=== PATIENT | female | born 1955 | race Caucasian/White ===

== ENCOUNTER 2020-04-28 05:09 | Inpatient (IN) ==
[2020-04-28] MEDS ORDERED: LORazepam 0.5 MG/1 ML VIAL IV STA (06:32)
[2020-04-28] MEDS ORDERED: SODIUM CHLORIDE 0.9% 500 ML IV SCH ×2 (06:45→07:30)
[2020-04-28 06:52] LABS: Basophils # (auto) 0.01 K/uL (0-0.2); Basophils % (auto) 0.1 %; Eosinophils # (auto) 0.05 K/uL (0-0.5); Eosinophils % (auto) 0.4 %; Hematocrit (blood only) 36.5 % (37-47); Hemoglobin 13.4 g/dL (12.0-16.0); Immature Granulocytes # (auto) 0.02 K/uL (0.00-0.02); Immature Granulocytes % (auto) 0.2 %; Lymphocytes # (auto) 2.32 K/uL (1.2-3.4); Lymphocytes % (auto) 20.6 %; Mean Corpuscular Hemoglobin 31.5 pg (25-34); Mean Corpuscular Hgb Conc 36.7 g/dL (32-36); Mean Corpuscular Volume 85.9 fL (80-100); Mean Platelet Volume 8.5 fL (7.4-10.4); Monocytes # (auto) 1.29 K/uL (0.11-0.59); Monocytes % (auto) 11.5 %; Neutrophils # (auto) 7.56 K/uL (1.4-6.5); Neutrophils % (auto) 67.2 %; Platelet Count 288 K/uL (130-400); RDW Coefficient of Variation 11.7 % (11.5-14.5); RDW Standard Deviation 36.4 fL (36.4-46.3); Red Blood Count 4.25 M/uL (4.2-5.4); White Blood Count 11.25 K/uL (4.8-10.8)
[2020-04-28 07:16] LABS: Albumin Globulin Ratio 1.1 (0.9-2); BUN Creatinine Ratio 11.2 (10-20); Bilirubin,Total 0.5 mg/dl (0.2-1); Calcium 8.8 mg/dl (8.5-10.1); Creatinine Clr Calc Pharmacy 81.3 ml/min; Est GFR (Non-African American) 95.8; Globulin 3.6 gm/dl (2.5-4.0); Potassium 3.8 mmol/L (3.5-5.1); Total Protein 7.6 gm/dl (6.4-8.2)
--- NOTE | 2020-04-28 08:07 | Emergency Department Note ---
Impression & Plan Hyponatremia, Medication side effects ED Provider Note NAME: PAVAN CARY AGE: 65 SEX: F ARRIVES VIA: Family Vehicle INFORMANT: Patient patient's daughter ED PROVIDER(S): Monica Wynn DO CHIEF COMPLAINT: Feels anxious PLAN: Disposition: Admitted to the [facility] Condition: Stable MEDICAL DECISION MAKING: This is a 65-year-old female patient who presents to the emergency department feeling diffuse myalgias, tremulous and diarrhea that started around midnight. The patient believes that she is having a medication side effect. The patient was diagnosed with shingles on her left upper thigh. She started taking Valtrex and prednisone yesterday. The patient has not been taking her metformin over the past week but once she started taking the prednisone, her blood sugars elevated so she started taking the metformin again. It is unclear what dose of this medication she has taken. The patient did not sleep overnight tonight and has become quite anxious. Her blood pressure was elevated upon presentation. It appears that she is having some side effects from the prednisone but the patient also has a significantly low sodium. After some discussion with the patient and her daughter, it seems that she had a previous episode of hyponatremia from unknown etiology approximately 2 years ago. She was [place] for this. I discussed the case with the [facility] group and they will evaluate for further management. Triage Nursing notes reviewed and agree them. Additional history obtained from patient's daughter who is at the bedside Prior medical records reviewed Vital Signs: reviewed and remarkable for hypertension Differential diagnosis: Hyperglycemia, electrolyte abnormality, anxiety, medication side effects, dehydration ER treatment provided: IV normal saline hydration, IV Ativan Diagnostics interpreted by me: Cardiac Monitoring: Normal sinus rhythm at a rate of 88 Laboratory studies: See below HPI: 65/F arrives for evaluation of myalgias, tremors and diarrhea. The patient believes that she is having a reaction to metformin or prednisone. Patient was diagnosed with shingles on her left upper thigh. She started taking Valtrex and prednisone yesterday. The patient has not been taking her metformin over the past week but once she started taking prednisone, her blood sugar elevated and she started taking an increased dose of metformin. The patient was unable to sleep tonight and had multiple episodes of diarrhea. She developed diffuse muscle ache and was shaking. The patient became quite anxious. ROS: See above HPI for pertinent positives & negatives. A total of 10 systems reviewed and were otherwise negative. PAST MEDICAL HISTORY:See Below PAST SURGICAL HISTORY:See Below FAMILY HISTORY:See Below SOCIAL HISTORY:See Below HOME MEDICATIONS:See Below ALLERGIES:See Below VITALS:See Below PHYSICAL EXAMINATION: General: The patient is extremely anxious on my initial exam. She is finding it difficult to sit still to communicate with me. HEENT: Head - normocephalic and atraumatic Pupils are equal, round, and reactive to light. Extraocular eye muscles are intact, and sclera are anicteric. Nose - moist nasal mucosa without discharge. Mouth - moist buccal mucosa. Oropharynx is nonerythematous and there is no tonsillar exudate or edema noted. Neck: Supple; no JVD, nuchal rigidity, cervical lymphadenopathy. Heart: Regular rate and rhythm. There is a normal S1 and S2 with no murmurs, clicks, or gallops appreciated. Lungs: Clear to auscultation bilaterally with no wheezes, rales, or rhonchi. Abdomen: Soft, completely nontender, nondistended, with good bowel sounds. There are no palpable pulsatile masses or hepatosplenomegaly. There is no guarding, rigidity, or rebound noted. Extremities: No evidence of cyanosis, clubbing, or edema. There are easily palpable peripheral pulses. Skin: The patient has vesicles noted on her left upper outer thigh; no obvious peripheral edema Times/Reassessments: 0620: The patient was evaluated in room a 12. A complete history and physical was performed. An order was placed for continuous cardiac monitoring. The patient was in a normal sinus rhythm at 82. An IV lock was initiated and labs are drawn as above. Patient was bolused with normal saline solution. I had a lengthy discussion with the patient and her daughter about how she was taking her metformin. Reviewed some laboratory values that have been resulted. The daughter made me aware of a previous episode of low sodium the patient had approximately 2 years ago when she was out of state which required hospitalization. Monica Wynn DO Past Med/Surg History Medical History (Updated 04/28/20 @ 23:08 by Monica Wynn DO) DM type 2 (diabetes mellitus, type 2) Dyslipidemia Hypertension Hyponatremia Hypothyroidism Surgical History History of partial hysterectomy History of sinus surgery History of tonsillectomy Family History Mother Heart disease Father Lung cancer Sister Diabetes Social History Smoking Status: Never smoker Second Hand Exposure: No; Do You Dip or Chew Tobacco: No; Tobacco Cessation Education Requested by Patient: No Hx Alcohol Use: No Hx Substance Use: No Preferred Language: Amharic Communication Ability: Effective 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 Beliefs That Will Affect Care: None Current Living Situation: Spouse Other Information That Helps Us Care for You: No Feels Safe at Home: Yes Safety Concerns: Feels Safe At This Time Allergies Allergies Allergy/AdvReac Type Severity Reaction Status Date / Time morphine AdvReac Severe Nausea Verified 04/28/20 05:47 codeine AdvReac Intermediate ABD PAIN Verified 04/28/20 05:47 Home Meds Home Medications Medication Instructions Recorded Confirmed ascorbic acid (vitamin C) [Vitamin 500 mg PO BID 05/13/18 04/28/20 C] aspirin [Adult Low Dose Aspirin] 81 mg PO DAILY 05/13/18 04/28/20 cholecalciferol (vitamin D3) 1,000 unit PO DAILY 05/13/18 04/28/20 [Vitamin D3] levothyroxine [Synthroid] 112 mcg PO DAILY 05/13/18 04/28/20 lisinopril [Zestril] 2.5 mg PO DAILY 05/13/18 04/28/20 calcium carbonate-vitamin D3 600 1 cap PO BID cap 09/21/19 04/28/20 mg calcium-200 unit capsule metformin 500 mg tablet 1,000 mg PO BID tab 09/21/19 04/28/20 nitroglycerin 0.4 mg sublingual 0.4 mg SL Q5M PRN 09/21/19 04/28/20 tablet omega-3 fatty acids 1,000 mg 1,000 mg PO DAILY 09/21/19 04/28/20 capsule simvastatin 10 mg tablet 10 mg PO DAILY 09/21/19 04/28/20 prednisone 40 mg PO DAILY 04/28/20 04/28/20 valacyclovir 1,000 mg PO TID 04/28/20 04/28/20 Results & Data (ED) Vital Signs Vital Signs - 24 hr 04/28/20 06:53 04/28/20 08:00 Pulse Rate [Left Radial] 105 H 98 H Pulse Rhythm [Left Radial] Regular Regular Pulse Strength [Left Radial] Normal Normal Respiratory Rate 18 18 Respiratory Effort / Characteristics Non-Labored Non-Labored Spontaneous Respiratory Depth Normal Normal Respiratory Pattern Regular Blood Pressure [Right Arm] 154/95 H 135/76 Blood Pressure Mean [Right Arm] 114 95 Blood Pressure Position [Right Arm] Lying Lying Pulse Oximetry 96 98 Oxygen Delivery Method Room Air Room Air Laboratory Data Result diagrams: 04/29/20 05:15 04/29/20 05:15 Lab Results 04/28/20 04/28/20 Range/Units 06:43 06:43 WBC 11.25 H (4.8-10.8) K/uL RBC 4.25 (4.2-5.4) M/uL Hgb 13.4 (12.0-16.0) g/dL Hct 36.5 L (37-47) % MCV 85.9 (80-100) fL MCH 31.5 (25-34) pg MCHC 36.7 H (32-36) g/dL RDW Std Deviation 36.4 (36.4-46.3) fL RDW Coeff of Yong 11.7 (11.5-14.5) % Plt Count 288 (130-400) K/uL MPV 8.5 (7.4-10.4) fL Immature Gran % (Auto) 0.2 % Neut % (Auto) 67.2 % Lymph % (Auto) 20.6 % [place] % (Auto) 11.5 % Eos % (Auto) 0.4 % Baso % (Auto) 0.1 % Neut # (Auto) 7.56 H (1.4-6.5) K/uL Lymph # (Auto) 2.32 (1.2-3.4) K/uL [place] # (Auto) 1.29 H (0.11-0.59) K/uL Eos # (Auto) 0.05 (0-0.5) K/uL Baso # (Auto) 0.01 (0-0.2) K/uL Immature Gran # (Auto) 0.02 (0.00-0.02) K/uL Sodium 117 L* (136-145) mmol/L Potassium 3.8 (3.5-5.1) mmol/L Chloride 85 L (98-107) mmol/L Carbon Dioxide 21 (21-32) mmol/L Anion Gap 13.0 H (3-11) BUN 7 (7-18) mg/dl Creatinine 0.61 (0.6-1.2) mg/dl Est Cr Clr Drug Dosing 81.3 ml/min Est GFR ( Amer) 111.0 Est GFR (Non-Af Amer) 95.8 BUN/Creatinine Ratio 11.2 (10-20) Glucose 206 H (70-99) mg/dl Calcium 8.8 (8.5-10.1) mg/dl Total Bilirubin 0.5 (0.2-1) mg/dl AST 18 (15-37) U/L ALT 20 (12-78) U/L Alkaline Phosphatase 70 (45-117) U/L Total Protein 7.6 (6.4-8.2) gm/dl Albumin 4.0 (3.4-5.0) gm/dl Globulin 3.6 (2.5-4.0) gm/dl Albumin/Globulin Ratio 1.1 (0.9-2) Administered Medications Acetaminophen (Acetaminophen 325 Mg Tab) 650 mg PO Q4H PRN PRN Reason: Pain or Fever Stop: 05/28/20 11:03 Last Admin: 04/29/20 02:37 Dose: 650 mg Documented by: [id number] Enoxaparin Sodium (Enoxaparin Inj 40 Mg/0.4 Ml Syr) 40 mg SQ Q24H [facility] Stop: 05/28/20 13:59 Last Admin: 04/28/20 13:07 Dose: 40 mg Documented by: [id number] Insulin Aspart (Insulin Aspart 100 Units/Ml 3 Ml Pen) 0 units SC ACHS [facility] Stop: 05/28/20 11:29 Last Admin: 04/28/20 21:53 Dose: Not Given Documented by: [id number] Cosigned by: [id number] Admin: 04/28/20 17:25 Dose: 3 units Documented by: [id number] Cosigned by: [id number] Admin: 04/28/20 11:56 Dose: 2 units Documented by: [id number] Cosigned by: [id number] Levothyroxine Sodium (Levothyroxine Sodium 112 Mcg Tablet) 112 mcg PO DAILYBB [facility] Stop: 05/29/20 06:29 Last Admin: 04/29/20 06:09 Dose: 112 mcg Documented by: [id number] Valacyclovir HCl (Valacyclovir Hcl 500 Mg Tablet) 1,000 mg PO TID KARTIK; Protocol Stop: 05/03/20 23:59 Last Admin: 04/28/20 21:23 Dose: 1,000 mg Documented by: [id number] Admin: 04/28/20 13:07 Dose: 1,000 mg Documented by: [id number] Discontinued Medications Acetaminophen (Acetaminophen 500 Mg Tab) 1,000 mg PO ONE STA Stop: 04/28/20 12:40 Last Admin: 04/28/20 13:10 Dose: 1,000 mg Documented by: [id number] Lorazepam (Ativan) 0.5 mg in 1 mls @ 1 mls/min IV NOW STA Stop: 04/28/20 06:33 Last Admin: 04/28/20 06:46 Dose: 1 mls/min Documented by: [id number] Sodium Chloride (Nss) 500 mls @ 999 mls/hr IV .Q31M KARTIK Stop: 04/28/20 07:15 Last Infusion: 04/28/20 08:14 Dose: 0 mls/hr Documented by: [id number] Admin: 04/28/20 06:49 Dose: 999 mls/hr Documented by: [id number] Sodium Chloride (Nss) 500 mls @ 125 mls/hr IV .Q4H KARTIK Stop: 05/28/20 07:29 Last Infusion: 04/28/20 12:20 Dose: 0 mls/hr Documented by: [id number] Admin: 04/28/20 08:15 Dose: 125 mls/hr Documented by: [id number] Sodium Chloride (Hypertonic Saline 3%) 100 mls @ 200 mls/hr IV .Q30M STA Stop: 04/28/20 12:14 Last Infusion: 04/28/20 12:51 Dose: 0 mls/hr Documented by: [id number] Cosigned by: [id number] Admin: 04/28/20 12:21 Dose: 200 mls/hr Documented by: [id number] Cosigned by: [id number] Sodium Chloride (Hypertonic Saline 3%) 250 mls @ 250 mls/hr IV .Q1H STA; Protocol Stop: 04/28/20 15:29 Last Infusion: 04/28/20 16:00 Dose: 0 mls/hr Documented by: [id number] Cosigned by: [id number] Admin: 04/28/20 15:00 Dose: 250 mls/hr Documented by: [id number] Cosigned by: [id number] Dextrose (D5w) 500 mls @ 125 mls/hr IV .Q4H STA Stop: 04/29/20 02:52 Last Infusion: 04/29/20 04:03 Dose: 0 mls/hr Documented by: [id number] Admin: 04/29/20 00:03 Dose: 125 mls/hr Documented by: [id number] Ondansetron HCl (Ondansetron Inj 2 Mg/Ml 2 Ml Vial) 4 mg IV ONE STA Stop: 04/28/20 12:40 Last Admin: 04/28/20 13:06 Dose: 4 mg Documented by: [id number] Potassium Chloride (Potassium Chloride 20 Meq Tabcr) 40 meq PO NOW STA Stop: 04/28/20 14:37 Last Admin: 04/28/20 15:09 Dose: 40 meq Documented by: [id number] Discharge Plan Visit Data Chief Complaint: Hypertension Stated Complaint: HYPERTENSION ED Provider: Monica Wynn Discharge Problem: Hyponatremia, Medication side effects Patient Disposition: Admitted As Inpatient Discharge Instructions Interventions: ED Discharge Assessment Last Done: 04/28/20 10:52
--- NOTE | 2020-04-28 09:46 | History & Physical Report ---
Date of Service April 28, 2020 Assessment & Plan (1) Hyponatremia: -Admit to telemetry -Patient presenting from home with reports of elevated BP, tremors, generalized weakness, and diarrhea -In the ED, Na+ 117; noted to be 128 on 04/26 -Admitted in 2018 for hyponatremia with sodium of 126, was attributed to increased water intake. Also reportedly admitted to a hospital in [place] last year for hyponatremia as well, records unavailable. -By history, fluid intake does not seem to be excessive -? SIADH vs. hypovolemic hyponatremia from diarrhea -Received NSS 500 cc in ED followed by NSS at 125/hour -Repeat Na+ 117 -Per nephrology, start 3% NSS (2) Diarrhea: -Check stool studies -Abdominal exam benign, will hold on imaging at this time (3) Shingles: -Continue valacyclovir -Hold prednisone as this may be contributing to elevated BP and some anxiety (4) Hypertension: -BP elevated on presentation however most recent BP 138/74 without intervention -Continue home dose of lisinopril (5) DM type 2 (diabetes mellitus, type 2): -Hgb A1c 7.5 03/2020 -Metformin recently placed on hold by endocrinology due to possible adverse effects -NovoLog per protocol hospitalized -Consider initiation of alternative p.o. agent at discharge (6) Hypothyroidism: -TSH 2.9 -Continue levothyroxine (7) DVT prophylaxis: -SQ Lovenox History of Present Illness Chief Complaint: High blood pressure, not feeling well Primary Care Provider: Susy Ivey DO 65-year-old female with PMH DM type II, hypothyroidism, HTN, dyslipidemia, and other problems listed below who presents the ED for evaluation of high blood pressure and generally not feeling well. Patient is a poor historian. Earlier this week, patient developed a rash on her left thigh. Patient was evaluated 2 days ago and was diagnosed with shingles. She was placed on valacyclovir and prednisone taper. Patient reports that yesterday after taking her second dose of prednisone, she started to not feel well. Describes having nausea, tremors, diarrhea, weakness, and headache. She was monitoring her blood pressure and reports systolic blood pressures were ranging from 100-180. She reports having about 12 episodes of diarrhea. Patient was seen by endocrinology on 03/20 and reported having "spells" involving these very similar symptoms. There seemed to be some correlation from when she started metformin. She was instructed by endocrinology to hold metformin for the time being. When she started to feel ill yesterday, she took 2 tablets of 500 mg metformin. Denies bright red bleeding per rectum or dark tarry stools. No vomiting or abdominal pain. Patient reports she typically takes in about 2 L of water per day. She will also drink a type of electrolyte replacement (Pedialyte) when she feels as though her electrolytes are abnormal. Reports having about two 24 ounce bottles yesterday. No chest pain or shortness of breath. Reports some mild lightheadedness and dizziness however no syncopal event. Denies any other recent illnesses, fevers, chills. No urinary symptoms. Review of records show the patient was admitted to [facility] in 2018 for hyponatremia that was felt to be secondary to excessive water intake. Patient also apparently had an admission to the hospital in [place] last year for hyponatremia however those records are unavailable at this time. Allergies Allergy/AdvReac Type Severity Reaction Status Date / Time morphine AdvReac Severe Nausea Verified 04/28/20 05:47 codeine AdvReac Intermediate ABD PAIN Verified 04/28/20 05:47 Home Medications Home Medications Medication Instructions Recorded Confirmed Type ascorbic acid (vitamin C) [Vitamin 500 mg PO BID 05/13/18 04/28/20 History C] aspirin [Adult Low Dose Aspirin] 81 mg PO DAILY 05/13/18 04/28/20 History cholecalciferol (vitamin D3) 1,000 unit PO DAILY 05/13/18 04/28/20 History [Vitamin D3] levothyroxine [Synthroid] 112 mcg PO DAILY 05/13/18 04/28/20 History lisinopril [Zestril] 2.5 mg PO DAILY 05/13/18 04/28/20 History calcium carbonate-vitamin D3 600 1 cap PO BID cap 09/21/19 04/28/20 History mg calcium-200 unit capsule metformin 500 mg tablet 1,000 mg PO BID tab 09/21/19 04/28/20 History nitroglycerin 0.4 mg sublingual 0.4 mg SL Q5M PRN 09/21/19 04/28/20 History tablet omega-3 fatty acids 1,000 mg 1,000 mg PO DAILY 09/21/19 04/28/20 History capsule simvastatin 10 mg tablet 10 mg PO DAILY 09/21/19 04/28/20 History prednisone 40 mg PO DAILY 04/28/20 04/28/20 History valacyclovir 1,000 mg PO TID 04/28/20 04/28/20 History Past Med/Surg History Medical History (Updated 04/28/20 @ 14:29 by Ernestine Griggs MD, PhD) DM type 2 (diabetes mellitus, type 2) Dyslipidemia Hypertension Hyponatremia Hypothyroidism Surgical History History of partial hysterectomy History of sinus surgery History of tonsillectomy Family History Mother Heart disease Father Lung cancer Sister Diabetes Social History Smoking Status: Never smoker Second Hand Exposure: No; Do You Dip or Chew Tobacco: No; Tobacco Cessation Education Requested by Patient: No Hx Alcohol Use: No Hx Substance Use: No Preferred Language: Turkmen Communication Ability: Effective 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 Beliefs That Will Affect Care: None Current Living Situation: Spouse Other Information That Helps Us Care for You: No Feels Safe at Home: Yes Safety Concerns: Feels Safe At This Time Review of Systems Review of Systems: ROS per HPI, all other systems reviewed and negative Physical Exam Constitutional: WD/WN, vitals as above Eyes: PERRL, conjunctivae normal, anicteric sclerae ENMT: external ear and nose normal, oropharynx normal Respiratory: normal respiratory effort, lungs clear to auscultation Cardiovascular: Rate/Rhythm: regular rhythm and + tachycardic (low 100s) Vessels: normal peripheral pulses Extremities: no edema Gastrointestinal (Abdomen): normal bowel sounds, soft, nontender, no hepatosplenomegaly Musculoskeletal: no cyanosis or clubbing, extremities motor strength 5/5 Skin: warm and dry; zoster appearing rash on anterior left thigh Neurologic: PERRL, EOMI, accommodation nl, no face palsy, no dysarthria Psychiatric: Orientation: alert and oriented x 3 restless at times Results & Data Results & Data ([facility]) Vital Signs (Past 12 Hours) Vital Signs Temp Pulse Pulse Resp BP BP Pulse Ox 04/28/20 09:07 37.0 C 100 H 24 146/98 H 96 04/28/20 08:00 98 H 18 135/76 98 04/28/20 06:53 105 H 18 154/95 H 96 04/28/20 06:34 96 04/28/20 05:22 37.1 C 116 H 20 184/97 H 98 Laboratory Results Short CBC 04/28/20 Range/Units 06:43 WBC 11.25 H (4.8-10.8) K/uL Hgb 13.4 (12.0-16.0) g/dL Hct 36.5 L (37-47) % Plt Count 288 (130-400) K/uL BMP 04/28/20 04/28/20 06:43 09:38 Sodium 117 L* 117 L* Potassium 3.8 3.5 Chloride 85 L 85 L Carbon Dioxide 21 22 BUN 7 5 L Creatinine 0.61 0.53 L Glucose 206 H 183 H Calcium 8.8 8.1 L Liver Function 04/28/20 Range/Units 06:43 Total Bilirubin 0.5 (0.2-1) mg/dl AST 18 (15-37) U/L ALT 20 (12-78) U/L Alkaline Phosphatase 70 (45-117) U/L Albumin 4.0 (3.4-5.0) gm/dl Code Status & VTE Plan VTE Prophylaxis Plan VTE Prophylaxis will be ordered: Yes Supervising Physician Co-Signing Physician Notes I have seen and examined the patient and have discussed the case with the provider above. I agree with the assessment and plan as stated with the following exceptions. 65 yo F with recent Na of 128 two days ago, presented today (04/28) with multiple systemic issues such as nonspecific abdominal pain, lower back pain, upper shoulder pain, nausea, diarrhea. She appears very uncomfortable. She started Valtrex to treat shingles on her leg as well as prednisone taper prior to onset of these symptoms. She was seen by an horseradish grinder one week ago who recommended she stop her metformin which she did but then restarted this yesterday (took 1000mg total) when she felt these symptoms start, thinking it was something to do with her blood sugar. She looks very systemically ill and agitated consistent with symptomatic hyponatremia. On exam, cardiac evaluation is normal with S1/2 heard and no murmurs, gallops or rubs. Lungs are CTAB, abdomen is soft and nontender. She has a shingles lesion on her upper left thigh with no significant swelling of this area, erythema or drainage. No LE edema. Appears euvolemic. Will hold diet for now until she starts to feel better. Nephrology is ordering 3% saline for 1 hr and will continue to follow her sodium and clinical progression closely throughout the day today. Hold any other IVF at this time. Stool sample if able with o ngoing diarrhea. Still awaiting urine labwork. Aneesh, DO
[2020-04-28 10:57] LABS: BUN Creatinine Ratio 9.7 (10-20); Calcium 8.1 mg/dl (8.5-10.1); Creatinine Clr Calc Pharmacy 92.1 ml/min; Est GFR (African American) 116.3; Est GFR (Non-African American) 100.3; Potassium 3.5 mmol/L (3.5-5.1); Thyroid Stimulating Hormone 2.96 uIu/ml (0.300-4.500)
[2020-04-28] MEDS ORDERED: GLUCAGON FOR INJ 1 MG VIAL SQ PRN (11:04)
[2020-04-28] MEDS ORDERED: GLUCOSE 40% GEL 15 GM TUBE PO PRN (11:04)
[2020-04-28] MEDS ORDERED: ACETAMINOPHEN 325 MG TAB PO PRN (11:04)
[2020-04-28] MEDS ORDERED: DEXTROSE 50% 50 ML SYRINGE IV PRN (11:04)
[2020-04-28] MEDS ORDERED: CARBOHYDRATES FOR HYPOGLYCEMIA PO PRN (11:04)
[2020-04-28] MEDS ORDERED: GLUCOSE 10 TABS/TUBE PO PRN (11:04)
[2020-04-28] MEDS ORDERED: ONDANSETRON INJ 2 MG/ML 2 ML VIAL IV PRN (11:04)
[2020-04-28] MEDS ORDERED: SODIUM CHLORIDE 3 % 100 ML IV STA (11:45)
[2020-04-28] MEDS: INSULIN ASPART 100 UNITS/ML 3 ML PEN SC SCH ×3 (11:56→21:53)
[2020-04-28] MEDS ORDERED: ACETAMINOPHEN 500 MG TAB PO STA (12:39)
[2020-04-28] MEDS ORDERED: ONDANSETRON INJ 2 MG/ML 2 ML VIAL IV STA (12:39)
[2020-04-28] MEDS: ENOXAPARIN INJ 40 MG/0.4 ML SYR SQ SCH (13:07)
[2020-04-28] MEDS: VALACYCLOVIR HCL 500 MG TABLET PO SCH ×2 (13:07→21:23)
[2020-04-28 14:25] LABS: Calcium 7.9 mg/dl (8.5-10.1); Creatinine Clr Calc Pharmacy 93.8 ml/min; Potassium 3.4 mmol/L (3.5-5.1)
--- NOTE | 2020-04-28 14:28 | Nephrology Consultation ---
Date of Consultation April 28, 2020 Assessment & Plan (1) Hyponatremia: severe and symptomatic hyponatremia, likeliest hypovolemic based on hx of diarrhea; however behaving clinically more like SIADH/low solute diet in that she's hardly responded to fluid resuscitation so far. in the ER she had 500mL NS and then 100 mL 3% saline >> sNa went from 117 to 118. >ordered another 250 mL 3% saline stat; recheck bmp ordered 1800 >reminder sent asking for urine specimens >recommend seizure precautions and bedrest (to commode with assist) until sNa consistently > 120 but defer to primary service to order (d/w Dr Melendrez) -maintain eukalemia: ordered 40 mEq po K x 1 -continue strict I/O -for now now fluid limit Care coordinated with Dr Melendrez; will follow with you Present on Admission?: Yes (2) Hypertension: (3) Shingles: History of Present Illness Reason for Consultation: hyponatremia Requesting Physician: Dr Melendrez Attending Physician: Karen Melendrez, DO History of Present Illness 65 y/o F whom I'm asked to see for same after she was admitted for sNa 117 in the setting of severe diarrhea, malaise, HTN urgency. PMH includes hypertension, diabetes on metformin, hypothyroid, myalgia, past admissions for hyponatremia, most recently in 2018 [facility] in the setting of diarrhea per 's report. Her is at bedside and gives much of the hx. Also admitted in [place] prior to 2018 for serum sodium 117 after excessive yard work, sweating and diarrhea. The patient saw her PCP on April 26 for evaluation of left outer thigh rash with left lower quadrant abdominal pain and left medial thigh proximal numbness: Diagnosed with shingles and given Valcyte and prednisone. Labs drawn that day show sNa 128. She had been on metformin to manage diabetes but had previously stopped it because she was concerned medication was increasing her blood pressure (she tells me; per report endocrinology had also recommended stopping metformin at least 10 days back). PCP did not specifically appliance counselor her to resume metformin (at least not per note), however the patient resumed it over the weekend. Also noted to have systolic blood pressure elevations at home up to 180 mmHg and beyond to where the machine could not functionally register her blood pressure during the weekend. Home cuff is validated. Should states her home blood pressure meds did not help HTN. Yesterday afternoon she started developing malaise and felt even worse after taking her second pill of Valtrex (she told me Valtrex; note that she told primary service sx worsend after second dose of prednisone). She had 1 to 2 L of Pedialyte at home but the diarrhea continued to worsen. She also had nonbilious nonbloody emesis x3 with nausea and fatigue with some tremors. She reports that at home overnight into this morning she was confused and had some chest discomfort. Denies having had either of these since arrival to the hospital. No falls but marked generalized weakness prior to hospital and continuing at time of our interview. Her presenting sodium was 117 at 0700 with a potassium of 3.8 and creatinine 0. 6; serum osmolality 247. In the ER she had 500 mL NS at about 0700; then another 500 mL at 0830; on recheck sNa unchanged at 117, K 3.5, creat 0.5. She had ongoing malaise and diffuse joint pain, N; no diarrhea on arrival to the floor > after discussion with IM attending, I ordered 100 mL 3% saline. Pt had transient relief of her sx. Allergies Allergy/AdvReac Type Severity Reaction Status Date / Time morphine AdvReac Severe Nausea Verified 04/28/20 05:47 codeine AdvReac Intermediate ABD PAIN Verified 04/28/20 05:47 Home Medications Home Medications Medication Instructions Recorded Confirmed Type ascorbic acid (vitamin C) [Vitamin 500 mg PO BID 05/13/18 04/28/20 History C] aspirin [Adult Low Dose Aspirin] 81 mg PO DAILY 05/13/18 04/28/20 History cholecalciferol (vitamin D3) 1,000 unit PO DAILY 05/13/18 04/28/20 History [Vitamin D3] levothyroxine [Synthroid] 112 mcg PO DAILY 05/13/18 04/28/20 History lisinopril [Zestril] 2.5 mg PO DAILY 05/13/18 04/28/20 History calcium carbonate-vitamin D3 600 1 cap PO BID cap 09/21/19 04/28/20 History mg calcium-200 unit capsule metformin 500 mg tablet 1,000 mg PO BID tab 09/21/19 04/28/20 History nitroglycerin 0.4 mg sublingual 0.4 mg SL Q5M PRN 09/21/19 04/28/20 History tablet omega-3 fatty acids 1,000 mg 1,000 mg PO DAILY 09/21/19 04/28/20 History capsule simvastatin 10 mg tablet 10 mg PO DAILY 09/21/19 04/28/20 History prednisone 40 mg PO DAILY 04/28/20 04/28/20 History valacyclovir 1,000 mg PO TID 04/28/20 04/28/20 History Patient History Medical History (Updated 04/28/20 @ 14:29 by Ernestine Griggs MD, PhD) DM type 2 (diabetes mellitus, type 2) Dyslipidemia Hypertension Hyponatremia Hypothyroidism Surgical History History of partial hysterectomy History of sinus surgery History of tonsillectomy Family History Mother Heart disease Father Lung cancer Sister Diabetes Social History Smoking Status: Never smoker Second Hand Exposure: No; Do You Dip or Chew Tobacco: No; Tobacco Cessation Education Requested by Patient: No Hx Alcohol Use: No Hx Substance Use: No Preferred Language: Spanish Communication Ability: Effective Veterinarian Laboratory Animal Care Required: No Beliefs That Will Affect Care: None Current Living Situation: Spouse Other Information That Helps Us Care for You: No Feels Safe at Home: Yes Safety Concerns: Feels Safe At This Time Review of Systems Review of Systems: All systems reviewed & are unremarkable except as noted in HPI & below Physical Exam Constitutional: well developed, well nourished, + acute distress (mild distress as interview progresses > looks uncomfortable, restless, tire) and cooperative Eyes: EOM intact bilaterally ENMT: Ears: no external ear abnormality Nose: no external nose abnormality Mouth: + dry oral mucous membranes Neck: no nuchal rigidity Respiratory: normal respiratory effort Auscultation: lungs clear to auscul tation bilaterally and + diminished lung sounds Cardiovascular: RRR, no murmur, no edema Gastrointestinal (Abdomen): Inspection/Auscultation: normal bowel sounds Percussion/Palpation: abdomen soft; abdomen nontender Musculoskeletal: Extremities: strength 5/5 throughout (but with generalized weakness) Skin: + rash (vesicles not broken present L thigh outer) Neurologic: masters, fluent speech, no tremor, + generalized weak Psychiatric: Orientation: alert and oriented x 3 Speech: normal rate/rhythm/volume of speech Genitourinary: no kim Results & Data ([facility]) Vital Signs (Past 12 Hours) Vital Signs Temp Pulse Pulse Resp BP BP BP 04/28/20 10:39 37.1 C 88 16 138/74 04/28/20 09:07 37.0 C 100 H 24 146/98 H 04/28/20 08:00 98 H 18 135/76 04/28/20 06:53 105 H 18 154/95 H 04/28/20 06:34 04/28/20 05:22 37.1 C 116 H 20 184/97 H Pulse Ox 04/28/20 10:39 96 04/28/20 09:07 96 04/28/20 08:00 98 04/28/20 06:53 96 04/28/20 06:34 96 04/28/20 05:22 98 Laboratory Results 04/28/20 06:43 04/28/20 13:40 (1) Shingles Herpes zoster complications: with other complications Qualified Code(s): B02.8 - Zoster with other complications (2) Hypertension Hypertension type: essential hypertension Qualified Code(s): I10 - Essential (primary) hypertension
[2020-04-28] MEDS ORDERED: SODIUM CHLORIDE 3 % 250 ML IV STA (14:30)
[2020-04-28] MEDS ORDERED: POTASSIUM CHLORIDE 20 MEQ TABCR PO STA (14:36)
[2020-04-28 17:22] LABS: Appearance Urine Clear (Clear); Bacteria Urine Automated Negative (Negative); Bilirubin Urine Negative (Negative); Blood Urine 1+ (Negative); Cast Urine Automated 0 /lpf (0-5); Color Urine Yellow; Glucose Urine UA Negative (Negative); Ketones Urine Trace (Negative); Leukocyte Esterase Urine Trace (Negative); Nitrite Urine Negative (Negative); Protein Urine Negative (Negative); Specific Gravity Urine 1.009 (1.000-1.030); Urobilinogen Urine Negative (Negative)
[2020-04-28 17:39] LABS: Creatinine Urine Random 23.9 mg/dl
[2020-04-28 18:41] LABS: BUN Creatinine Ratio 5.5 (10-20); Calcium 8.2 mg/dl (8.5-10.1); Creatinine Clr Calc Pharmacy 56.1 ml/min; Est GFR (African American) 81.6; Est GFR (Non-African American) 70.4; Potassium 4.2 mmol/L (3.5-5.1)
[2020-04-28 22:08] LABS: Calcium 8.6 mg/dl (8.5-10.1); Creatinine Clr Calc Pharmacy 70.7 ml/min; Est GFR (African American) 106.6; Potassium 4.3 mmol/L (3.5-5.1)
[2020-04-28] MEDS ORDERED: DEXTROSE 5% 500 ML IV STA (22:53)
--- NOTE | 2020-04-28 22:57 | Communication Note ---
Date of Service: April 28, 2020 2200 bmp reviewed per plan > sNa 127, up from 117 on presentation this AM; sNa was 128 on 04/26. K4.3. Goal sNa for AM is approx 123-124: ordered 500 mL D5W; follow up w/ AM bmp
[2020-04-29 05:47] LABS: Hematocrit (blood only) 37.8 % (37-47); Hemoglobin 13.7 g/dL (12.0-16.0); Mean Corpuscular Hemoglobin 31.6 pg (25-34); Mean Corpuscular Hgb Conc 36.2 g/dL (32-36); Mean Corpuscular Volume 87.1 fL (80-100); Mean Platelet Volume 8.6 fL (7.4-10.4); Platelet Count 287 K/uL (130-400); RDW Coefficient of Variation 11.7 % (11.5-14.5); RDW Standard Deviation 37.4 fL (36.4-46.3); Red Blood Count 4.34 M/uL (4.2-5.4); White Blood Count 10.89 K/uL (4.8-10.8)
[2020-04-29] MEDS: LEVOTHYROXINE SODIUM 112 MCG TABLET PO SCH (06:09)
[2020-04-29 06:28] LABS: BUN Creatinine Ratio 12.1 (10-20); Calcium 8.4 mg/dl (8.5-10.1); Est GFR (Non-African American) 59.5; Potassium 4.2 mmol/L (3.5-5.1)
[2020-04-29 07:10] LABS: Estimated Average Glucose 174 mg/dl; Hemoglobin A1C 7.7 % (4.5-5.6)
[2020-04-29] MEDS: SIMVASTATIN 10 MG TAB PO SCH (08:00)
[2020-04-29] MEDS: VALACYCLOVIR HCL 500 MG TABLET PO SCH ×3 (08:00→21:02)
[2020-04-29] MEDS: ASPIRIN 81 MG ECTAB PO SCH (08:01)
[2020-04-29] MEDS: INSULIN ASPART 100 UNITS/ML 3 ML PEN SC SCH ×4 (08:01→20:57)
[2020-04-29] MEDS ORDERED: DESMOPRESSIN ACETATE 4 MCG/ML 10 ML VIAL SQ ONE (08:56)
[2020-04-29] MEDS ORDERED: DEXTROSE 5% 1,000 ML IV SCH (09:00)
[2020-04-29] MEDS ORDERED: DESMOPRESSIN ACETATE 4 MCG/ML 1 ML AMP SQ ONE (09:15)
--- NOTE | 2020-04-29 10:26 | Hospitalist Progress Note ---
Date of Service April 29, 2020 Assessment & Plan (1) Hyponatremia: symptomatic hyponatremia yesterday--improved yest afternoon after 3% saline per Nephrology. Diarrhea is resolved. Na is 127 this am. Nephro notified and started more free water and DDAVP. Na 126 this afternoon. Stopped free water and will recheck Na again at 1900 today. All symptoms are resolved. (2) Diarrhea: resolves and abdominal exam is benign. (3) Shingles: -Continue valacyclovir (4) Hypertension: at goal, cont home meds (5) DM type 2 (diabetes mellitus, type 2): -Hgb A1c 7.5 03/2020 -Metformin recently placed on hold by endocrinology due to possible adverse effects although she did take two doses prior to presentation to the Er. -NovoLog per protocol hospitalized -Consider initiation of alternative p.o. agent at discharge (6) Hypothyroidism: -TSH 2.9 -Continue levothyroxine (7) Back pain: Mid back pain developed overnight. No trauma. Possibly from the bed. Pt is requesting ICE. Tylenol PRN. (8) DVT prophylaxis: -SQ Lovenox Full Code Dispo-on PCU at this time. To home when medically stable. Karen Melendrez DO [facility] Hospitalist Admission and Anticipated Discharge Date Admission Date: April 28, 2020 Subjective 65 yo F presented with Na 117 with symptoms likely 2/2 low Na. She reports all those symptoms from yesterday have resolved and she feels much better today. She is reporting some itching in her shingles rash area and some mid back pain on the left side that wasn't present yesterday. There was no trauma. She is tolerating PO without issue. Denies diarrhea. Review of Systems Review of Systems: All systems reviewed & are unremarkable except as noted in Subjective Physical Exam Physical Exam: CONSTITUTIONAL: WNWD, vitals as above, generally well- appearing EYES: normal conjunctivae, no scleral icterus ENT: MMM RESPIRATORY: clear to auscultation bilaterally, no crackles, rales or wheezes, normal respiratory effort CARDIOVASCULAR: regular rate and rhythm, S1 and 2 heard without murmurs, gallops or rubs, no JVD, no peripheral edema GASTROINTESTINAL: soft, nontender, nondistended. MUSCULOSKELETAL: Left back pain on paraspinal muscles, TTP. Strength 5/5 throughout, moves around the bed independently and without assistance. Head is normocephalic and atraumatic SKIN: warm and dry, erythematous papular rash on left upper thigh that appears to be improved today. NEUROLOGIC: No facial palsy, no dysarthria. CN 2-12 grossly intact, normal cognition, normal speech, no gross neurologic deficits. PSYCHIATRIC: alert cooperative and oriented to person, place and time. Euthymic mood, makes good eye contact, language grossly intact, recent and remote memory grossly intact. Results & Data Results & Data ([facility]) Vital Signs (Past 12 Hours) Vital Signs Temp Pulse Pulse Resp BP BP Pulse Ox 04/29/20 07:58 36.7 C 76 20 113/75 96 04/29/20 03:55 36.7 C 69 16 115/72 97 04/28/20 23:55 36.5 C 61 18 109/63 97 04/28/20 22:45 75 Laboratory Results Short CBC 04/29/20 Range/Units 05:15 WBC 10.89 H (4.8-10.8) K/uL Hgb 13.7 (12.0-16.0) g/dL Hct 37.8 (37-47) % Plt Count 287 (130-400) K/uL BMP 04/28/20 04/28/20 04/28/20 09:38 13:40 17:40 Sodium 117 L* 118 L* 121 L Potassium 3.5 3.4 L 4.2 D Chloride 85 L 86 L 89 L Carbon Dioxide 22 22 23 BUN 5 L 4 L 5 L Creatinine 0.53 L 0.52 L 0.87 D Glucose 183 H 167 H 200 H Calcium 8.1 L 7.9 L 8.2 L 04/28/20 04/29/20 21:41 05:15 Sodium 127 L 127 L Potassium 4.3 4.2 Chloride 97 L 96 L Carbon Dioxide 21 23 BUN 8 12 Creatinine 0.69 1.00 D Glucose 133 H 145 H Calcium 8.6 8.4 L Urine 04/28/20 Range/Units 16:50 Urine Color Yellow Urine Appearance Clear (Clear) Urine pH 8.0 H (4.5-7.5) Ur Specific [place] 1.009 (1.000-1.030) Urine Protein Negative (Negative) Urine Glucose (UA) Negative (Negative) Medications Administered Current Inpatient Medications Acetaminophen (Acetaminophen 325 Mg Tab) 650 mg PO Q4H PRN PRN Reason: Pain or Fever Stop: 05/28/20 11:03 Last Admin: 04/29/20 02:37 Dose: 650 mg Documented by: Aspirin (Aspirin 81 Mg Ectab) 81 mg PO DAILY [facility] Stop: 05/29/20 08:59 Last Admin: 04/29/20 08:01 Dose: 81 mg Documented by: Dextrose (Dextrose 50% 50 Ml Syringe) 25 - 50 ml IV UD PRN; Protocol PRN Reason: Hypoglycemia Protocol Stop: 05/28/20 11:03 Enoxaparin Sodium (Enoxaparin Inj 40 Mg/0.4 Ml Syr) 40 mg SQ Q24H KARTIK Stop: 05/28/20 13:59 Last Admin: 04/28/20 13:07 Dose: 40 mg Documented by: Glucagon (Glucagon For Inj 1 Mg Vial) 1 mg SQ UD PRN; Protocol PRN Reason: Hypoglycemia Protocol Stop: 05/28/20 11:03 Glucose (Glucose 10 Tabs/Tube) 4 - 8 tabs PO UD PRN; Protocol PRN Reason: Hypoglycemia Protocol Stop: 05/28/20 11:03 Glucose (Glucose 40% Gel 15 Gm Tube) 15 - 30 gm PO UD PRN; Protocol PRN Reason: Hypoglycemia Protocol Stop: 05/28/20 11:03 Dextrose (D5w) 1,000 mls @ 125 mls/hr IV .Q8H [facility] Stop: 05/29/20 08:59 Last Admin: 04/29/20 09:42 Dose: 125 mls/hr Documented by: Insulin Aspart (Insulin Aspart 100 Units/Ml 3 Ml Pen) 0 units SC ACHS [facility] Stop: 05/28/20 11:29 Last Admin: 04/29/20 08:01 Dose: 3 units Documented by: Levothyroxine Sodium (Levothyroxine Sodium 112 Mcg Tablet) 112 mcg PO DAILYBB [facility] Stop: 05/29/20 06:29 Last Admin: 04/29/20 06:09 Dose: 112 mcg Documented by: Lisinopril (Lisinopril 2.5 Mg Tab) 2.5 mg PO DAILY KARTIK Stop: 05/29/20 08:59 Last Admin: 04/29/20 08:00 Dose: 2.5 mg Documented by: Lorazepam (Lorazepam 0.5 Mg Tab) 0.5 mg PO Q6 PRN PRN Reason: Anxiety Stop: 05/28/20 12:38 Miscellaneous (Carbohydrates For Hypoglycemia ) 15 - 30 gm PO UD PRN PRN Reason: Hypoglycemia Protocol Stop: 05/28/20 11:03 Ondansetron HCl (Ondansetron Inj 2 Mg/Ml 2 Ml Vial) 4 mg IV Q6H PRN PRN Reason: Nausea Stop: 05/28/20 11:03 Simvastatin (Simvastatin 10 Mg Tab) 10 mg PO DAILY [facility] Stop: 05/29/20 08:59 Last Admin: 04/29/20 08:00 Dose: 10 mg Documented by: Valacyclovir HCl (Valacyclovir Hcl 500 Mg Tablet) 1,000 mg PO TID KARTIK; Protocol Stop: 05/03/20 23:59 Last Admin: 04/29/20 08:00 Dose: 1,000 mg Documented by: (1) Shingles Herpes zoster complications: with other complications Qualified Code(s): B02.8 - Zoster with other complications (2) Hypertension Hypertension type: essential hypertension Qualified Code(s): I10 - Essential (primary) hypertension
[2020-04-29] MEDS: ENOXAPARIN INJ 40 MG/0.4 ML SYR SQ SCH (14:30)
[2020-04-29] MEDS ORDERED: OXYCODONE HCL IR 5 MG TAB (IMMEDIATE RELEASE) PO PRN (16:34)
--- NOTE | 2020-04-29 16:52 | Nephrology Progress Note ---
Date of Service April 29, 2020 Assessment & Plan (1) Hyponatremia: severe and symptomatic hyponatremia, likeliest hypovolemic based on hx of diarrhea; however behaving clinically more like SIADH/low solute diet in that she's hardly responded to fluid resuscitation so far. in the ER she had 500mL NS and then 100 mL 3% saline >> sNa went from 117 to 118. Sodium this morning 127. Recent sodium was 126. -will give her DDAVP 3 mcg subcu 1 time. -D5 water at 125 mL/hour as needed to keep the sodium in the high 120s for today. Target sodium is the 129 by morning on 04/30/2020. -okay to stop D5 for now but restart if next lab shows sodium above 129. -repeat sodium at 7:00 p.m. today Care coordinated with Dr Melendrez; will follow with you (2) Hypertension: (3) Shingles: Admission and Anticipated Discharge Date Admission Date: April 28, 2020 Subjective Patient feels well. Diarrhea has subsided. Sodium was slightly higher than expected this morning. Review of Systems Review of Systems: All systems reviewed & are unremarkable except as noted in HPI & below Physical Exam Physical Exam: General exam: Appears comfortable, no acute distress HEENT: Pupils are equal and reactive to light Neck: No JVD, neck is supple trachea is midline Respiratory system: Clear breath sounds bilaterally. Gastrointestinal: Abdomen is soft, non distended, non tender, bowel sounds are present CVS: Regular rate and rhythm. No murmurs, rubs or gallops Musculoskeletal: No joint or muscle tenderness Extremities: Non tender, no edema, peripheral pulses are present Neuro: Oriented, no tremors, no focal neurological deficits Skin: No rashes Results & Data ([facility]) Vital Signs (Past 12 Hours) Vital Signs Temp Pulse Resp BP Pulse Ox 04/29/20 16: 36.5 C 74 18 131/68 96 04/29/20 12:34 37 C 78 16 125/71 96 04/29/20 07:58 36.7 C 76 20 113/75 96 Laboratory Results 04/29/20 11:57 04/29/20 05:15 WBC 10.89 H RBC 4.34 MCV 87.1 MCH 31.6 MCHC 36.2 H RDW Std Deviation 37.4 RDW Coeff of Yong 11.7 Plt Count 287 MPV 8.6 (1) Hypertension Hypertension type: essential hypertension Qualified Code(s): I10 - Essential (primary) hypertension (2) Shingles Herpes zoster complications: with other complications Qualified Code(s): B02.8 - Zoster with other complications
[2020-04-29 19:32] LABS: BUN Creatinine Ratio 11.7 (10-20); Calcium 8.7 mg/dl (8.5-10.1); Creatinine Clr Calc Pharmacy 28.8 ml/min; Est GFR (African American) 40.3; Est GFR (Non-African American) 34.8
[2020-04-29] MEDS ORDERED: SODIUM CHLORIDE 0.9% 500 ML IV ONE (19:40)
--- NOTE | 2020-04-29 19:41 | Communication Note ---
Date of Service: April 29, 2020 Notified by RN of abnormal 1856 chemistry results. Serum sodium 122 from 126 Serum creatinine 1.56 from 1 Patient complaining of bilateral flank pain. AP Worsening hyponatremia ARF rule out obstructive uropathy given flank pain complaints NSS 50 cc/hr for now Check UA Hold lisinopril CT abdomen pelvis RE bilateral pain Dr. 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 Patient may benefit from increased NSS IVF rate pending repeat renal function as per tank house operator. ADDENDUM CT abdomen pelvis initial read: No hydronephrosis or nephrolithiasis. Mild bilateral perinephric fat stranding nonspecific finding. Recommend correlation with UA to exclude ascending UTI and pyelonephritis. UA WBC est AP Complicated UTI Follow urine cultures IV Ertapenem for now (history ESBL E. coli as per outpatient records) Will relay to AM provider.
[2020-04-29] MEDS ORDERED: GABAPENTIN 100 MG CAP PO SCH (21:00)
[2020-04-29 23:12] LABS: Appearance Urine Clear (Clear); Bacteria Urine Automated Negative (Negative); Bilirubin Urine Negative (Negative); Blood Urine 1+ (Negative); Cast Urine Automated 0 /lpf (0-5); Color Urine Yellow; Glucose Urine UA Trace (Negative); Ketones Urine Negative (Negative); Leukocyte Esterase Urine 1+ (Negative); Nitrite Urine Negative (Negative); Protein Urine Negative (Negative); Specific Gravity Urine 1.012 (1.000-1.030); Urobilinogen Urine Negative (Negative)
[2020-04-29] MEDS ORDERED: ERTAPENEM CONSULT ACTIVE PRN (23:35)
[2020-04-29 23:42] LABS: Magnesium 2.3 mg/dl (1.8-2.4)
[2020-04-30] MEDS ORDERED: ERTAPENEM SODIUM 1,000 MG in SODIUM CHLORIDE 0.9% 50 ML IV ONE
[2020-04-30] MEDS: LORazepam 0.5 MG TAB PO PRN (00:24)
[2020-04-30 00:36] LABS: BUN Creatinine Ratio 15.1 (10-20); Calcium 8.7 mg/dl (8.5-10.1); Creatinine Clr Calc Pharmacy 32.8 ml/min; Est GFR (African American) 47.1; Est GFR (Non-African American) 40.7; Potassium 3.7 mmol/L (3.5-5.1)
[2020-04-30] MEDS ORDERED: SODIUM CHLORIDE 0.9% 1000ML 1,000 ML IV ONE (01:03)
[2020-04-30] MEDS: LEVOTHYROXINE SODIUM 112 MCG TABLET PO SCH (05:45)
[2020-04-30 07:00] LABS: Basophils # (auto) 0.02 K/uL (0-0.2); Basophils % (auto) 0.2 %; Eosinophils # (auto) 0.09 K/uL (0-0.5); Hematocrit (blood only) 37.5 % (37-47); Hemoglobin 13.7 g/dL (12.0-16.0); Immature Granulocytes # (auto) 0.02 K/uL (0.00-0.02); Immature Granulocytes % (auto) 0.2 %; Lymphocytes # (auto) 2.06 K/uL (1.2-3.4); Lymphocytes % (auto) 23.7 %; Mean Corpuscular Hemoglobin 31.1 pg (25-34); Mean Corpuscular Hgb Conc 36.5 g/dL (32-36); Mean Corpuscular Volume 85.2 fL (80-100); Mean Platelet Volume 8.3 fL (7.4-10.4); Monocytes # (auto) 1.24 K/uL (0.11-0.59); Monocytes % (auto) 14.3 %; Neutrophils # (auto) 5.26 K/uL (1.4-6.5); Neutrophils % (auto) 60.6 %; Platelet Count 252 K/uL (130-400); RDW Coefficient of Variation 11.6 % (11.5-14.5); White Blood Count 8.69 K/uL (4.8-10.8)
--- NOTE | 2020-04-30 07:27 | CT Scan Report ---
CT SCAN OF THE ABDOMEN AND PELVIS WITHOUT CONTRAST CLINICAL HISTORY: R flank pain COMPARISON STUDY: 02/26/2012 TECHNIQUE: CT scan of the abdomen and pelvis was performed from the lung bases to the proximal femurs . Images are reviewed in the axial, sagittal, and coronal planes. IV contrast was not administered fo r this examination. A dose lowering technique was utilized adhering to the principles of ALARA. CT DOSE: 248.07 mGy.cm FINDINGS: Lower chest: The heart is normal in size and configuration, without pericardial effusion. The lung ba ses and pleural spaces are clear. Liver: The unenhanced liver is normal in size, contour, and attenuation. There is no intrahepatic lew iary ductal dilatation. Gallbladder: There is a stable gas containing structure within the region the gallbladder fossa. This could represent a diverticulum, or less likely contracted gas containing gallbladder. This is not fe lt to be of acute clinical significance Spleen: Normal in size and attenuation. Pancreas: Unremarkable. Adrenal glands: Unremarkable. Kidneys: No renal calculi are visualized. There is mild bilateral perinephric stranding. There is no significant hydronephrosis. No ureteral or bladder calculi are visualized. Bowel: There are no transition zones indicate bowel obstruction. There is no evidence of acute divert iculitis. There is mild fecal retention. The appendix is not visualized with certainty. There are no findings to indicate acute appendicitis Peritoneum: There is no intraperitoneal free air or abdominal ascites. Vasculature: The abdominal aorta is normal in course and caliber. Adenopathy: None. Pelvic viscera: The uterus appears surgically absent Skeletal structures: No destructive osseous lesions are seen. IMPRESSION: 1. No evidence of bowel obstruction. No evidence of free air 2. No renal, ureteral, or bladder calculi identified 3. Mild nonspecific perinephric stranding 4. No evidence of acute diverticulitis. Nonvisualization the appendix, but no evidence of acute appen dicitis ACT 112: Negative or not required by law. Electronically signed by: Hilario Erickson M.D. 04/30/2020 7:26 AM
[2020-04-30 07:33] LABS: BUN Creatinine Ratio 15.9 (10-20); Calcium 8.4 mg/dl (8.5-10.1); Creatinine Clr Calc Pharmacy 40.5 ml/min; Est GFR (African American) 60.8; Est GFR (Non-African American) 52.4
[2020-04-30] MEDS: SIMVASTATIN 10 MG TAB PO SCH (08:56)
[2020-04-30] MEDS: ASPIRIN 81 MG ECTAB PO SCH (08:56)
[2020-04-30] MEDS: VALACYCLOVIR HCL 500 MG TABLET PO SCH (08:56)
[2020-04-30] MEDS: INSULIN ASPART 100 UNITS/ML 3 ML PEN SC SCH ×4 (08:57→20:22)
--- NOTE | 2020-04-30 10:33 | Hospitalist Progress Note ---
Date of Service April 30, 2020 Assessment & Plan (1) Hyponatremia: 123 this am. No further fluids and will recheck in am. Doing well clinically. (2) Acute kidney injury: Likely etiology was the Valtrex, which is Day 5 and with shingles rash re solving Valtrex was stopped. Also stopped lisinopril 2.5mg which is another home medication. (3) Diarrhea: resolved and abdominal exam is benign. (4) Shingles: Improvement in rash. Tylenol for Pain. (5) Hypertension: She is around goal, but hold ACEI in setting of elevated creatinine. (6) DM type 2 (diabetes mellitus, type 2): -Hgb A1c 7.5 03/2020 NovoLog per protocol hospitalized -after speaking with Dr. Tanner she should continue off all agents and follow- up with him in the office soon after discharge. If she is requiring a significant amount of insulin (she is currently not) it is also reasonable to dc her on Lantus. (7) Hypothyroidism: -TSH 2.9 -Continue levothyroxine (8) Back pain: Mid back pain developed two nights ago after admission. No other issues reported yesterday but flank pain reported last night with some perinephric stranding on the CT scan. Ertapenem coverage for possible acute pyelonephritis pending culture results. Remains afebrile. (9) DVT prophylaxis: -SQ Lovenox Full Code Dispo-on PCU at this time. To home when medically stable, likely in am. Would recommend close follow-up with Dr. Preet Tanner in Endocrinology who was following her for the spells related to hyponatremia which has affected her in the past. aKren Melendrez DO [facility] and Anticipated Discharge Date Admission Date: April 28, 2020 Subjective Difficult night overnight Reported flank pain and was started on Ertapenem for ?UTI Reported dysuria, also. No bacteria on either UA, but UCx is now pending. Na 123 this am. She is feeling better today overall. She is tolerating PO. Shingles rash is becoming itchy and less apparent No fever Review of Systems Review of Systems: All systems reviewed & are unremarkable except as noted in Subjective Physical Exam Physical Exam: CONSTITUTIONAL: WNWD, vitals as above, generally well- appearing EYES: normal conjunctivae, no scleral icterus ENT: MMM RESPIRATORY: clear to auscultation bilaterally, no crackles, rales or wheezes, normal respiratory effort CARDIOVASCULAR: regular rate and rhythm, S1 and 2 heard without murmurs, gallops or rubs, no JVD, no peripheral edema GASTROINTESTINAL: soft, nontender, nondistended. MUSCULOSKELETAL: No CVA tenderness. Strength 5/5 throughout, moves around the bed independently and without assistance. Head is normocephalic and atraumatic SKIN: warm and dry, erythematous papular rash on left upper thigh that appears to be improved today. NEUROLOGIC: No facial palsy, no dysarthria. CN 2-12 grossly intact, normal cognition, normal speech, no gross neurologic deficits. PSYCHIATRIC: alert cooperative and oriented to person, place and time. Euthymic mood, makes good eye contact, language grossly intact, recent and remote memory grossly intact. Results & Data Results & Data ([facility]) Vital Signs (Past 12 Hours) Vital Signs Temp Pulse Pulse Resp BP Pulse Ox 04/30/20 07:34 36.7 C 81 18 152/88 H 97 04/30/20 04:12 36.6 C 78 17 116/76 97 04/30/20 01:29 85 157/85 H 04/30/20 00:18 37.3 C 91 H 18 173/91 H 98 04/29/20 23:09 112 H Laboratory Results Short CBC 04/30/20 Range/Units 06:42 WBC 8.69 (4.8-10.8) K/uL Hgb 13.7 (12.0-16.0) g/dL Hct 37.5 (37-47) % Plt Count 252 (130-400) K/uL [facility] 04/29/20 04/29/20 04/30/20 11:57 18:57 00:11 Sodium 126 L 122 L 122 L Potassium 4.0 3.7 Chloride 89 L 89 L Carbon Dioxide 24 20 L BUN 18 21 H Creatinine 1.56 H D 1.37 H Glucose 155 H 164 H Calcium 8.7 8.7 04/30/20 06:42 Sodium 123 L Potassium 4.0 Chloride 91 L Carbon Dioxide 22 BUN 18 Creatinine 1.11 Glucose 138 H Calcium 8.4 L Urine 04/29/20 Range/Units 22:50 Urine Color Yellow Urine Appearance Clear (Clear) Urine pH 6.0 (4.5-7.5) Ur Specific [place] 1.012 (1.000-1.030) Urine Protein Negative (Negative) Urine Glucose (UA) Trace H (Negative) Diagnostic Findings CT SCAN OF THE ABDOMEN AND PELVIS WITHOUT CONTRAST CLINICAL HISTORY: R flank pain COMPARISON STUDY: 02/26/2012 TECHNIQUE: CT scan of the abdomen and pelvis was performed from the lung bases to the proximal femurs. Images are reviewed in the axial, sagittal, and coronal planes. IV contrast was not administered for this examination. A dose lowering technique was utilized adhering to the principles of ALARA. CT DOSE: 248.07 mGy.cm FINDINGS: Lower chest: The heart is normal in size and configuration, without pericardial effusion. The lung bases and pleural spaces are clear. Liver: The unenhanced liver is normal in size, contour, and attenuation. There is no intrahepatic biliary ductal dilatation. Gallbladder: There is a stable gas containing structure within the region the gallbladder fossa. This could represent a diverticulum, or less likely contracted gas containing gallbladder. This is not felt to be of acute clinical significance Spleen: Normal in size and attenuation. Pancreas: Unremarkable. Adrenal glands: Unremarkable. Kidneys: No renal calculi are visualized. There is mild bilateral perinephric stranding. There is no significant hydronephrosis. No ureteral or bladder calculi are visualized. Bowel: There are no transition zones indicate bowel obstruction. There is no evidence of acute diverticulitis. There is mild fecal retention. The appendix is not visualized with certainty. There are no findings to indicate acute appendicitis Peritoneum: There is no intraperitoneal free air or abdominal ascites. Vasculature: The abdominal aorta is normal in course and caliber. Adenopathy: None. Pelvic viscera: The uterus appears surgically absent Skeletal structures: No destructive osseous lesions are seen. IMPRESSION: 1. No evidence of bowel obstruction. No evidence of free air 2. No renal, ureteral, or bladder calculi identified 3. Mild nonspecific perinephric stranding 4. No evidence of acute diverticulitis. Nonvisualization the appendix, but no evidence of acute appendicitis Medications Administered Short CBC 04/30/20 Range/Units 06:42 WBC 8.69 (4.8-10.8) K/uL Hgb 13.7 (12.0-16.0) g/dL Hct 37.5 (37-47) % Plt Count 252 (130-400) K/uL [facility] 08/04/29/20 04/30/20 11:57 18:57 00:11 Sodium 126 L 122 L 122 L Potassium 4.0 3.7 Chloride 89 L 89 L Carbon Dioxide 24 20 L BUN 18 21 H Creatinine 1.56 H D 1.37 H Glucose 155 H 164 H Calcium 8.7 8.7 04/30/20 06:42 Sodium 123 L Potassium 4.0 Chloride 91 L Carbon Dioxide 22 BUN 18 Creatinine 1.11 Glucose 138 H Calcium 8.4 L Urine 04/29/20 Range/Units 22:50 Urine Color Yellow Urine Appearance Clear (Clear) Urine pH 6.0 (4.5-7.5) Ur Specific [place] 1.012 (1.000-1.030) Urine Protein Negative (Negative) Urine Glucose (UA) Trace H (Negative) (1) Shingles Herpes zoster complications: with other complications Qualified Code(s): B02.8 - Zoster with other complications (2) Hypertension Hypertension type: essential hypertension Qualified Code(s): I10 - Essential (primary) hypertension
--- NOTE | 2020-04-30 12:02 | Nephrology Progress Note ---
Date of Service April 30, 2020 Assessment & Plan (1) Hyponatremia: severe and symptomatic hyponatremia, likeliest hypovolemic based on hx of diarrhea; however behaving clinically more like SIADH/low solute diet in that she's hardly responded to fluid resuscitation so far. in the ER she had 500mL NS and then 100 mL 3% saline >> sNa went from 117 to 118. Sodium this morning was 123. -will stop all IV fluids -I encouraged patient to eat at least 3 meals daily and drink about 1.2 L of f luids daily Care coordinated with Dr Melendrez; will follow with you (2) Hypertension: Blood pressure is above target but could be due to abdominal/flank pain. No need to aggressively lower blood pressure at the moment. (3) Shingles: No new skin lesions. Recommend stopping Valcyte. (4) Acute kidney injury: Likely due to Valcyte. Renal function is better creatinine was 1.1 this morning. Daily BMP Admission and Anticipated Discharge Date Admission Date: April 28, 2020 Subjective Patient had a rough night. She had the flank pain and was started on ertapenem for possible UTI. Sodium dropped to 123. No diarrhea or vomiting. She is trying to limit carbohydrates to avoid high blood sugars. Review of Systems Review of Systems: All systems reviewed & are unremarkable except as noted in HPI & below Physical Exam Physical Exam: General exam: Appears comfortable, no acute distress HEENT: Pupils are equal and reactive to light Neck: No JVD, neck is supple trachea is midline Respiratory system: Clear breath sounds bilaterally. Gastrointestinal: Abdomen is soft, non distended, non tender, bowel sounds are present CVS: Regular rate and rhythm. No murmurs, rubs or gallops Musculoskeletal: No joint or muscle tenderness Extremities: Non tender, no edema, peripheral pulses are present Neuro: Oriented, no tremors, no focal neurological deficits Skin: shingles rashes on left thigh Results & Data ([facility]) Vital Signs (Past 12 Hours) Vital Signs Temp Pulse Pulse Resp BP Pulse Ox 04/30/20 08:00 70 04/30/20 07:34 36.7 C 81 18 152/88 H 97 04/30/20 04:12 36.6 C 78 17 116/76 97 04/30/20 01:29 85 157/85 H 04/30/20 00:18 37.3 C 91 H 18 173/91 H 98 Laboratory Results 04/30/20 06:42 04/30/20 06:42 WBC 8.69 RBC 4.40 MCV 85.2 MCH 31.1 MCHC 36.5 H RDW Std Deviation 36.0 L RDW Coeff of Yong 11.6 Plt Count 252 MPV 8.3 (1) Hypertension Hypertension type: essential hypertension Qualified Code(s): I10 - Essential (primary) hypertension (2) Shingles Herpes zoster complications: with other complications Qualified Code(s): B02.8 - Zoster with other complications
[2020-04-30] MEDS: ENOXAPARIN INJ 40 MG/0.4 ML SYR SQ SCH (13:01)
[2020-04-30] MEDS: ACETAMINOPHEN 500 MG TAB PO SCH ×2 (14:39→19:29)
[2020-04-30] MEDS: ERTAPENEM SODIUM 1,000 MG in SODIUM CHLORIDE 0.9% 50 ML IV SCH (23:55)
[2020-05-01] MEDS: ACETAMINOPHEN 500 MG TAB PO SCH ×5 (00:02→23:56)
[2020-05-01] MEDS: LORazepam 0.5 MG TAB PO PRN (01:39)
[2020-05-01] MEDS: LEVOTHYROXINE SODIUM 112 MCG TABLET PO SCH (06:11)
[2020-05-01 07:11] LABS: Hematocrit (blood only) 38.3 % (37-47); Mean Corpuscular Hemoglobin 31.1 pg (25-34); Mean Corpuscular Hgb Conc 36.6 g/dL (32-36); Mean Corpuscular Volume 85.1 fL (80-100); Mean Platelet Volume 8.5 fL (7.4-10.4); Platelet Count 279 K/uL (130-400); RDW Coefficient of Variation 11.8 % (11.5-14.5); RDW Standard Deviation 36.4 fL (36.4-46.3); White Blood Count 6.89 K/uL (4.8-10.8)
[2020-05-01 07:41] LABS: BUN Creatinine Ratio 18.7 (10-20); Calcium 8.7 mg/dl (8.5-10.1); Creatinine Clr Calc Pharmacy 39.1 ml/min; Est GFR (African American) 58.2; Est GFR (Non-African American) 50.2; Potassium 3.9 mmol/L (3.5-5.1)
[2020-05-01] MEDS: ASPIRIN 81 MG ECTAB PO SCH (09:23)
[2020-05-01] MEDS: INSULIN ASPART 100 UNITS/ML 3 ML PEN SC SCH ×4 (09:24→20:19)
[2020-05-01] MEDS: SIMVASTATIN 10 MG TAB PO SCH (09:24)
--- NOTE | 2020-05-01 10:47 | Hospitalist Progress Note ---
Date of Service May 01, 2020 Assessment & Plan (1) Hyponatremia: Symptomatic hyponatremia Received 3% saline on admission Hyponatremia improving Na is 125 this AM Marketing Support Specialist recommendations noted Started on UreaNa Will monitor Na for another 24h (2) Acute kidney injury: Likely etiology was the Valtrex, which has been discontinued stopped. Also stopped lisinopril 2.5mg which is another home medication. Cr is 1.15 today. DEREK resovled (3) Diarrhea: Resolved and abdominal exam is benign. (4) Shingles: Improvement in rash. Tylenol prn for Pain. (5) Hypertension: She is around goal Continue to ACEI for now Plan to resume on discharge (6) DM type 2 (diabetes mellitus, type 2): Hgb A1c 7.5 03/2020 NovoLog per protocol hospitalized Dr Melendrez spoke with Dr. Tanner - she should continue off all agents and follow-up with him in the office soon after discharge. If she is requiring a significant amount of insulin (she is currently not) it is also reasonable to dc her on Lantus. Will monitor insulin requirement today as patient started eating better yesterday. (7) Hypothyroidism: TSH 2.9 Continue levothyroxine (8) Back pain: Mid back pain developed two nights ago after admission. No other issues reported but flank pain reported 2 nights ago with some bilateral perinephric stranding on the CT scan. Ertapenem coverage for possible acute pyelonephritis pending culture results. Remains afebrile. Urine culture is negative day 1. Will continue ertapenem for now and plan to discontinue if urine culture remains negative with improvement in pain (9) DVT prophylaxis: SQ Lovenox Full Code Dispo-Possible Discharge tomorrow. Would recommend close follow-up with Dr. Preet Tanner in Endocrinology who was following her for the spells related to hyponatremia which has affected her in the past. Admission and Anticipated Discharge Date Admission Date: April 28, 2020 Subjective Patient seen and examined Reports leg thigh rash is improving Reports some left sided low back pain which is improving Denied any other symptoms Review of Systems Constitutional: no fever, no chills and no body aches Eyes: no worsening vision and no problem reported Ear, Nose, Mouth, Throat: no problem reported Respiratory: no cough, no dyspnea on exertion, no hemoptysis, no pain on inspiration and no wheezing Cardiovascular: no chest pain, no palpitations, no lightheadedness and no syncope Gastrointestinal: + change in bowel habits; no abdominal pain, no nausea, no vomiting, no cramping and no constipation Genitourinary: no problem reported Musculoskeletal: + back pain Left thigh rash Neurologic: no problem reported Physical Exam Constitutional: well developed and well nourished; no acute distress Eyes: PERRL, conjunctivae normal, anicteric sclerae ENMT: external ear and nose normal, oropharynx normal Respiratory: normal respiratory effort, lungs clear to auscultation Cardiovascular: RRR, no murmur, no edema Gastrointestinal (Abdomen): normal bowel sounds, soft, nontender, no hepatosplenomegaly Musculoskeletal: Erythematous papular crushed rash on anterior left thigh Neurologic: PERRL, EOMI, accommodation nl, no face palsy, no dysarthria Psychiatric: A+Ox3, euthymic affect Genitourinary: No CVA tenderness Results & Data Results & Data ([facility]) Vital Signs (Past 12 Hours) Vital Signs Temp Pulse Pulse Resp BP Pulse Ox 05/01/20 00:30 63 04/30/20 23:31 36.8 C 64 18 138/79 97 Laboratory Results Laboratory Results - last 24 hr 04/30/20 04/30/20 04/30/20 11:15 16:10 20:16 WBC RBC Hgb Hct MCV MCH MCHC RDW Std Deviation RDW Coeff of Yong Plt Count MPV Sodium Potassium Chloride Carbon Dioxide Anion Gap BUN Creatinine Est Cr Clr Drug Dosing Est GFR ( Amer) Est GFR (Non-Af Amer) BUN/Creatinine Ratio Glucose POC Glucose 239 H 189 H 202 H Calcium PTH Related Protein Random Cortisol 05/01/20 05/01/20 05/01/20 06:54 06:54 06:54 WBC 6.89 RBC 4.50 Hgb 14.0 Hct 38.3 MCV 85.1 MCH 31.1 MCHC 36.6 H RDW Std Deviation 36.4 RDW Coeff of Yong 11.8 Plt Count 279 MPV 8.5 Sodium 125 L Potassium 3.9 Chloride 93 L Carbon Dioxide 23 Anion Gap 9.0 BUN 21 H Creatinine 1.15 Est Cr Clr Drug Dosing 39.1 Est GFR ( Amer) 58.2 Est GFR (Non-Af Amer) 50.2 BUN/Creatinine Ratio 18.7 Glucose 147 H POC Glucose Calcium 8.7 PTH Related Protein Random Cortisol 25.09 05/01/20 05/01/20 06:54 08:14 WBC RBC Hgb Hct MCV MCH MCHC RDW Std Deviation RDW Coeff of Yong Plt Count MPV Sodium Potassium Chloride Carbon Dioxide Anion Gap BUN Creatinine Est Cr Clr Drug Dosing Est GFR ( Amer) Est GFR (Non-Af Amer) BUN/Creatinine Ratio Glucose POC Glucose 160 H Calcium PTH Related Protein Pending Random Cortisol (1) Shingles Herpes zoster complications: with other complications Qualified Code(s): B02.8 - Zoster with other complications (2) Hypertension Hypertension type: essential hypertension Qualified Code(s): I10 - Essential (primary) hypertension
[2020-05-01] MEDS: UREA (URE-NA) 15 GM PACK PO SCH ×2 (11:48→20:19)
[2020-05-01] MEDS: ENOXAPARIN INJ 40 MG/0.4 ML SYR SQ SCH (14:46)
[2020-05-01 17:53] LABS: BUN Creatinine Ratio 40.9 (10-20); Calcium 9.2 mg/dl (8.5-10.1); Creatinine Clr Calc Pharmacy 46.8 ml/min; Est GFR (African American) 72.4; Est GFR (Non-African American) 62.5; Potassium 4.3 mmol/L (3.5-5.1)
--- NOTE | 2020-05-01 20:11 | Nephrology Progress Note ---
Date of Service May 01, 2020 Assessment & Plan (1) Hyponatremia: severe and symptomatic hyponatremia, likeliest hypovolemic based on hx of diarrhea; however behaving clinically more like SIADH/low solute diet in that she's hardly responded to fluid resuscitation so far. in the ER she had 500mL NS and then 100 mL 3% saline >> sNa went from 117 to 118. Sodium this morning was 125 and up to 129 at 5pm. -Continue urea 15g bid. Patient will likely go home on 15g daily -I encouraged patient to eat at least 3 meals daily and drink about 1.2 L of fluids daily Care coordinated with Dr Melendrez; will follow with you (2) Hypertension: Blood pressure is at target today. No need to aggressively lower blood pressure at the moment. (3) Shingles: No new skin lesions. Off Valcyte. (4) Acute kidney injury: Likely due to Valcyte. Renal function is better off valcyte. Daily BMP Admission and Anticipated Discharge Date Admission Date: April 28, 2020 Subjective Patient seen this morning. no SOB or vomiting. No diarrhoea. Na better at 125. Cr stable at 1.1 Review of Systems Review of Systems: All systems reviewed & are unremarkable except as noted in HPI & below Physical Exam Physical Exam: General exam: Appears comfortable, no acute distress HEENT: Pupils are equal and reactive to light Neck: No JVD, neck is supple trachea is midline Respiratory system: Clear breath sounds bilaterally. Gastrointestinal: Abdomen is soft, non distended, non tender, bowel sounds are present CVS: Regular rate and rhythm. No murmurs, rubs or gallops Musculoskeletal: No joint or muscle tenderness Extremities: Non tender, no edema, peripheral pulses are present Neuro: Oriented, no tremors, no focal neurological deficits Skin: No rashes Results & Data ([facility]) Vital Signs (Past 12 Hours) Vital Signs Temp Pulse Pulse Resp BP Pulse Ox 05/01/20 16:50 36.5 C 82 18 125/79 96 05/01/20 16:00 82 05/01/20 12:35 36.5 C 78 20 152/89 H 100 05/01/20 09:00 36.8 C 73 20 146/78 H 98 Laboratory Results 05/01/20 17:22 05/01/20 06:54 WBC 6.89 RBC 4.50 MCV 85.1 MCH 31.1 MCHC 36.6 H RDW Std Deviation 36.4 RDW Coeff of Yong 11.8 Plt Count 279 MPV 8.5 (1) Hypertension Hypertension type: essential hypertension Qualified Code(s): I10 - Essential (primary) hypertension (2) Shingles Herpes zoster complications: with other complications Qualified Code(s): B02.8 - Zoster with other complications
[2020-05-01] MEDS: ERTAPENEM SODIUM 1,000 MG in SODIUM CHLORIDE 0.9% 50 ML IV SCH (22:11)
[2020-05-02] MEDS: LORazepam 0.5 MG TAB PO PRN (00:35)
[2020-05-02] MEDS: ACETAMINOPHEN 500 MG TAB PO SCH ×2 (05:22→10:21)
[2020-05-02] MEDS: LEVOTHYROXINE SODIUM 112 MCG TABLET PO SCH (05:22)
[2020-05-02 06:14] LABS: Hemoglobin 14.5 g/dL (12.0-16.0); Mean Corpuscular Hemoglobin 31.5 pg (25-34); Mean Corpuscular Hgb Conc 36.3 g/dL (32-36); Mean Platelet Volume 8.6 fL (7.4-10.4); Platelet Count 317 K/uL (130-400); RDW Standard Deviation 38.3 fL (36.4-46.3); White Blood Count 6.98 K/uL (4.8-10.8)
[2020-05-02 06:47] LABS: BUN Creatinine Ratio 44.8 (10-20); Calcium 9.4 mg/dl (8.5-10.1); Creatinine Clr Calc Pharmacy 49.9 ml/min; Est GFR (African American) 78.3; Est GFR (Non-African American) 67.6; Potassium 4.3 mmol/L (3.5-5.1)
[2020-05-02] MEDS: INSULIN ASPART 100 UNITS/ML 3 ML PEN SC SCH ×2 (08:04→11:52)
[2020-05-02] MEDS: SIMVASTATIN 10 MG TAB PO SCH (08:06)
[2020-05-02] MEDS: UREA (URE-NA) 15 GM PACK PO SCH (08:06)
[2020-05-02] MEDS: ASPIRIN 81 MG ECTAB PO SCH (08:06)
--- NOTE | 2020-05-02 11:16 | Discharge Summary ---
Date of Service May 02, 2020 Admission HPI Per Admitting Provider 65-year-old female with PMH DM type II, hypothyroidism, HTN, dyslipidemia, and other problems listed below who presents the ED for evaluation of high blood pressure and generally not feeling well. Patient is a poor historian. Earlier this week, patient developed a rash on her left thigh. Patient was evaluated 2 days ago and was diagnosed with shingles. She was placed on valacyclovir and prednisone taper. Patient reports that yesterday after taking her second dose of prednisone, she started to not feel well. Describes having nausea, tremors, diarrhea, weakness, and headache. She was monitoring her blood pressure and reports systolic blood pressures were ranging from 100-180. She reports having about 12 episodes of diarrhea. Patient was seen by endocrinology on 03/20 and reported having "spells" involving these very similar symptoms. There seemed to be some correlation from when she started metformin. She was instructed by endocrinology to hold metformin for the time being. When she started to feel ill yesterday, she took 2 tablets of 500 mg metformin. Denies bright red bleeding per rectum or dark tarry stools. No vomiting or abdominal pain. Patient reports she typically takes in about 2 L of water per day. She will also drink a type of electrolyte replacement (Pedialyte) when she feels as though her electrolytes are abnormal. Reports having about two 24 ounce bottles yesterday. No chest pain or shortness of breath. Reports some mild lightheadedness and dizziness however no syncopal event. Denies any other recent illnesses, fevers, chills. No urinary symptoms. Review of records show the patient was admitted to [facility] in 2017 for hyponatremia that was felt to be secondary to excessive water intake. Patient also apparently had an admission to the hospital in [place] last year for hyponatremia however those records are unavailable at this time. Admission Exam Per Admitting Provider Constitutional: WD/WN, vitals as above Eyes: PERRL, conjunctivae normal, anicteric sclerae ENMT: external ear and nose normal, oropharynx normal Respiratory: normal respiratory effort, lungs clear to auscultation Cardiovascular: Rate/Rhythm: regular rhythm and + tachycardic (low 100s) Vessels: normal peripheral pulses Extremities: no edema Gastrointestinal (Abdomen): normal bowel sounds, soft, nontender, no hepatosplenomegaly Musculoskeletal: no cyanosis or clubbing, extremities motor strength 5/5 Skin: warm and dry; zoster appearing rash on anterior left thigh Neurologic: PERRL, EOMI, accommodation nl, no face palsy, no dysarthria Psychiatric: Orientation: alert and oriented x 3 restless at times Principal Diagnosis Symptomatic hyponatremia Acute pyelonephritis ESBL E.coli UTI Acute kidney injury Discharge Exam Constitutional well developed and well nourished; no acute distress Eyes PERRL, conjunctivae normal, anicteric sclerae ENMT external ear and nose normal, oropharynx normal Respiratory normal respiratory effort, lungs clear to auscultation Cardiovascular RRR, no murmur, no edema Gastrointestinal (Abdomen) normal bowel sounds, soft, nontender, no hepatosplenomegaly Musculoskeletal Crop of erythematous papular crushed rash on anterior left thigh (improved compared to yesterday) Neurologic PERRL, EOMI, accommodation nl, no face palsy, no dysarthria Psychiatric A+Ox3, euthymic affect Discharge Data Allergies Allergy/AdvReac Type Severity Reaction Status Date / Time morphine AdvReac Severe Nausea Verified 04/28/20 05:47 codeine AdvReac Intermediate ABD PAIN Verified 04/28/20 05:47 Consultations 04/28/20 07:41 ED Decision to Admit Stat 04/28/20 08:48 Consult Nephrology Routine Ordered Studies 04/29/20 21:13 CT abd pelvis wo con Urgent FINDINGS: Lower chest: The heart is normal in size and configuration, without pericardial effusion. The lung bases and pleural spaces are clear. Liver: The unenhanced liver is normal in size, contour, and attenuation. There is no intrahepatic biliary ductal dilatation. Gallbladder: There is a stable gas containing structure within the region the gallbladder fossa. This could represent a diverticulum, or less likely contracted gas containing gallbladder. This is not felt to be of acute clinical significance Spleen: Normal in size and attenuation. Pancreas: Unremarkable. Adrenal glands: Unremarkable. Kidneys: No renal calculi are visualized. There is mild bilateral perinephric stranding. There is no significant hydronephrosis. No ureteral or bladder calculi are visualized. Bowel: There are no transition zones indicate bowel obstruction. There is no evidence of acute diverticulitis. There is mild fecal retention. The appendix is not visualized with certainty. There are no findings to indicate acute appendicitis Peritoneum: There is no intraperitoneal free air or abdominal ascites. Vasculature: The abdominal aorta is normal in course and caliber. Adenopathy: None. Pelvic viscera: The uterus appears surgically absent Skeletal structures: No destructive osseous lesions are seen. IMPRESSION: 1. No evidence of bowel obstruction. No evidence of free air 2. No renal, ureteral, or bladder calculi identified 3. Mild nonspecific perinephric stranding 4. No evidence of acute diverticulitis. Nonvisualization the appendix, but no evidence of acute appendicitis Hospital Course (1) Hyponatremia: Symptomatic hyponatremia Received 3% saline on admission and symptoms resolved Na was 117 on admission Comanaged with the interface control officer Na is 134 today Started on UreaNa per nephrology. Discharge on ureaNa daily. Patient wants to get this herself online (2) Acute kidney injury: Likely etiology was the Valtrex which was discontinued Cr increased from normal on admission, peaked at 1.56 and back to 0.9 today Lisinopril home med was also held but resumed on discharge (3) Diarrhea: Resolved and abdominal exam is benign. (4) Shingles: Improvement in rash. Tylenol prn for Pain. Valtrex and prednisone discontinued (5) Hypertension: Controlled Continue home meds (6) DM type 2 (diabetes mellitus, type 2): Hgb A1c 7.5 03/2020 NovoLog per protocol hospitalized Dr Melendrez spoke with Dr. Tanner - she should continue off all agents and follow-up with him in the office soon after discharge. If she is requiring a significant amount of insulin (she is currently not) it is also reasonable to dc her on Lantus. Patient required about 14U insulin yesterday However patient is not interested in any insulin at all. After much counselling and conversation with her today, she agreed to glipizide 2.5mg daily Advised her to keep a blood glucose log. Appt obtained for Dr Tanner. Educated on recognizing hypo and hyperglycemia Metformin discontinued (7) Hypothyroidism: TSH 2.9 Continue levothyroxine (8) Pyelonephritis: (9) Back pain: Mid back pain developed three nights ago after admission. Also reported flank pain especially on left side CT abd pelvis showing perinephric stranding Urine culture growing ESBL E. coli Started on IV Ertapenem Patient initially did not want IV meds on discharge. I spent quite some time explaining the findings for patient and need for iv antibiotics. Patient agreed to this and gave consent for USS IV line or mid line for outpatient antibiotics. She wanted to discuss home infusion options vs MTU with CM CM discussed with patient and she opted for MTU. Arrangements for this made by CM Continue IV ertapenem 1000mg daily till 05/13/20 Total Time Total Time Spent Total Time Spent (In Minutes): 65 Total Time Includes: Examination of the Patient, Discharge Planning and Medication Reconciliation Discharge Plan Discharge Items Patient Disposition: Home - Self-Care Reason For Visit: hyponatremia Discharge Diagnosis: Symptomatic hyponatremia ESBL E. coli UTI (Acute pyelonephritis) Activity: Resume your previous activity Non-emergency contact: Primary Care Provider Call non-emergency contact if: you have any medication questions and your symptoms worsen Follow-up/Referrals: Preet Tanner MD [Physician] - 05/08/20 11:30 am (appointment is with Frantz PALAFOX for Dr. Tanner, on May 08 at 11:30 am.) Susy Ivey DO [Primary Care Provider] - 05/07/20 1:30 pm (Date & Time 05/07/2020 1:30 PM Provider Susy Ivey DO Department Family Practice [facility] ) Diet: Carb Consistent or DM2 Fluids: 1800ml (7 cups) Ambulatory Orders: Basic Metabolic Panel (Routine) Timeframe: 1 Week Location: Determined by Patient Ordered By: Brissa Preston Attending Provider Instructions: Mrs Schneider. You came to the hospital complaining of feeling unwell. You were evaluated and found to have low sodium levels. You also started complaining of flank pain and urinary symptoms. Evaluation showed you have ESBL E.coli urinary tract infection You were started on antibiotics called ertapenem. You will need to continue this antibiotics till 05/13/20 (at infusion center) after which the special IV line will be removed. Please stop taking your metformin for now. You are being discharged on tab glipizide daily. Please monitor your blood glucose daily while on this and keep a log as we discussed. Please follow up with your Microbiological Lab Technician Dr Tanner on 05/08/20 at 11:30am for continued management. You were discharged on urea sodium daily. Stop taking valacyclovir and prednisone Please do the lab test called BMP (Basic Metabolic Panel) next week and follow up the result with your Primary Doctor. It was a pleasure taking care of you. Pending Studies at Discharge: No Stand-Alone Forms: My [facility], Smoking Cessation Medications and DC Order Prescriptions: New Ure-Na 15 gram Powder In Packet 15 g PO DAILY 30 Days RF: 0 glipizide 2.5 mg tablet extended release 24hr 2.5 mg PO DAILY Qty: 30 RF: 0 Continued simvastatin 10 mg tablet 10 mg PO DAILY RF: 0 nitroglycerin 0.4 mg tablet, sublingual 0.4 mg SL Q5M PRN (Reason: Chest Pain) RF: 0 omega-3 fatty acids 1,000 mg capsule 1,000 mg PO DAILY RF: 0 Calcium 600 + D(3) 600 mg calcium- 200 unit capsule 1 cap PO BID RF: 0 aspirin [Adult Low Dose Aspirin] 81 mg tablet,delayed release (DR/EC) 81 mg PO DAILY RF: 0 ascorbic acid (vitamin C) [Vitamin C] 500 mg Tablet 500 mg PO BID RF: 0 lisinopril [Zestril] 2.5 mg tablet 2.5 mg PO DAILY RF: 0 levothyroxine [Synthroid] 112 mcg tablet 112 mcg PO DAILY RF: 0 cholecalciferol (vitamin D3) [Vitamin D3] 1,000 unit Tablet 1,000 unit PO DAILY RF: 0 Discontinued valacyclovir 1 gram Tablet 1,000 mg PO TID RF: 0 prednisone 20 mg tablet 40 mg PO DAILY RF: 0 metformin [Glucophage] 500 mg tablet 1,000 mg PO BID RF: 0 Hold Instructions: Spells Discharge Orders: Discharge Order (Routine); Ordered 05/02/20 Ordered By: Brissa Whitney/Other Patient Handouts: Managing Type 2 Diabetes, Managing Diabetes: The A1C Test, Diabetes: Meal Planning Admission Data Admit Date/Time: 04/28/20 08:48 Attending Provider: Brissa Ahumada I. Admit Provider: Karen Melendrez Primary Care Provider: Susy Ivey Other Providers: Ernestine Griggs ; Karen Melendrez Other Interventions: Discharge Summary Assessment (RN) Last Done: 05/02/20 10:36
[2020-05-02] MEDS: ERTAPENEM SODIUM 1,000 MG in SODIUM CHLORIDE 0.9% 50 ML IV SCH (11:44)
[2020-05-02] MEDS ORDERED: Nursing to Pharmacy Communication SCH (11:45)
--- NOTE | 2020-05-02 14:41 | Nephrology Progress Note ---
Date of Service May 02, 2020 Assessment & Plan (1) Hyponatremia: severe and symptomatic hyponatremia, likeliest hypovolemic based on hx of diarrhea; however behaving clinically more like SIADH/low solute diet in that she's hardly responded to fluid resuscitation so far. in the ER she had 500mL NS and then 100 mL 3% saline >> sNa went from 117 to 118. Sodium this morning was 134. -from renal standpoint patient can be discharged home on urea 15g daily. Patient aware that she will have purchase this out of pocket. Insurance usually does not pay for this food supplement. -I encouraged patient to eat at least 3 meals daily and drink about 1.2 L of fluids daily -She can follow up with me in 2 weeks. She will need BMP mid next week Care coordinated with Dr Ahumada; will follow with you (2) Hypertension: Blood pressure is at target today. No need to aggressively lower blood pressure at the moment. (3) Shingles: No new skin lesions. Off Valcyte. (4) Acute kidney injury: Likely due to Valcyte. Renal function is better off valcyte. Daily BMP Admission and Anticipated Discharge Date Admission Date: April 28, 2020 Subjective Patient feels better today. She denies any diarrhea or vomiting. No abdominal pain. No urinary symptoms. Sodium is better at 134. Review of Systems Review of Systems: All systems reviewed & are unremarkable except as noted in HPI & below Physical Exam Physical Exam: General exam: Appears comfortable, no acute distress HEENT: Pupils are equal and reactive to light Neck: No JVD, neck is supple trachea is midline Respiratory system: Clear breath sounds bilaterally. Gastrointestinal: Abdomen is soft, non distended, non tender, bowel sounds are present CVS: Regular rate and rhythm. No murmurs, rubs or gallops Musculoskeletal: No joint or muscle tenderness Extremities: Non tender, no edema, peripheral pulses are present Neuro: Oriented, no tremors, no focal neurological deficits Skin: No rashes Results & Data ([facility]) Vital Signs (Past 12 Hours) Vital Signs Temp Pulse Pulse Resp BP BP Pulse Ox 05/02/20 10:36 36.4 C L 87 81 18 115/77 110/72 96 05/02/20 07:46 36.4 C L 87 18 115/77 96 05/02/20 03:45 36.9 C 64 16 110/72 95 Laboratory Results 05/02/20 05:58 05/02/20 05:58 WBC 6.98 RBC 4.60 MCV 87.0 MCH 31.5 MCHC 36.3 H RDW Std Deviation 38.3 RDW Coeff of Yong 12.0 Plt Count 317 MPV 8.6 (1) Hypertension Hypertension type: essential hypertension Qualified Code(s): I10 - Essential (primary) hypertension (2) Shingles Herpes zoster complications: with other complications Qualified Code(s): B02.8 - Zoster with other complications
[2020-05-02] MEDS ORDERED: UREA (URE-NA) 15 GM PACK PO SCH (21:00)
== END 2020-05-02 12:51 | disposition home or self-care (01) | DRG 641 ==
LOC: ED 05:09 → 2S 08:48 → SUATTDRO 08:48 → 2S 10:52